=== PATIENT | male | born 1990 | race African-American/Black ===

== ENCOUNTER 2022-06-17 15:12 | Emergency (ER) | payer OTHER ==
[~2022-06-17] VITALS: Ht 170.2 cm; Wt 63.0 kg
[2022-06-17 15:17] VITALS: BP 115/77
== END 2022-06-17 18:42 | disposition left against medical advice (07) ==
LOC: ER 15:12
DX: Z53.21 Procedure and treatment not carried out due to patient leaving prior to being seen by health care provider (principal)

== ENCOUNTER 2022-08-19 13:09 | Emergency (ER) | payer OTHER ==
[~2022-08-19] VITALS: Ht 177.8 cm; Wt 79.0 kg
[2022-08-19 13:12] VITALS: BP 110/75
== END 2022-08-19 21:57 | disposition left against medical advice (07) ==
LOC: ER 14:03
DX: Z53.21 Procedure and treatment not carried out due to patient leaving prior to being seen by health care provider (principal)